=== PATIENT | male | born 1965 | race African-American/Black ===

== ENCOUNTER 2018-05-22 20:14 | Emergency (ER) | payer OTHER ==
[~2018-05-22] VITALS: Ht 172.7 cm; Wt 60.0 kg
[2018-05-22 20:18] VITALS: Ht 172.7 cm; Wt 60.0 kg
[2018-05-22] MEDS ORDERED: PLAVIX75 MG PO (20:20)
[2018-05-22] MEDS ORDERED: BAYER ASPIRIN325 MG PO (20:20)
[2018-05-22] MEDS ORDERED: ALBUTEROL SULF8.5 GM INH (20:20)
[2018-05-22] MEDS ORDERED: PROTONIX40 MG PO (20:21)
[2018-05-22] MEDS ORDERED: NORVASC5 MG PO (20:21)
[2018-05-22] MEDS ORDERED: KLOR-CON 1010 MEQ PO (20:21)
[2018-05-22 21:05] LABS: APPEARANCE CLEAR (CLEAR); BILIRUBIN NEGATIVE (NEGATIVE); COLOR YELLOW (YELLOW); GLUCOSE NEGATIVE (NEGATIVE); KETONE NEGATIVE (NEGATIVE); NITRITE NEGATIVE (NEGATIVE); PROTEIN NEGATIVE (NEGATIVE); SPECIFIC GRAVITY 1.015 (1.005-1.020); UROBILINOGEN NORMAL (NORMAL)
[2018-05-22 21:10] LABS: BASOPHILS 0.4 % (0-2); EOSINOPHILS 0.6 % (0-7); HEMATOCRIT 36.2 % (42.0-54.0); HEMOGLOBIN 12.3 g/dL (13.5-17.5); IMMATURE GRANULOCYTES 0.2 % (0-5); LYMPHOCYTES 19.7 % (15-50); MCH 31.2 pg (26.0-34.0); MCV 91.9 fL (80.0-100.0); MEAN PLATELET VOLUME 9.9 fL (7.4-10.4); MONOCYTES 10.3 % (2-11); NEUTROPHILS 68.8 % (40-80); PLATELET COUNT 194 10x3/uL (130-400); RBC 3.94 10x6/uL (4.20-6.10); RDW 15.9 % (11.5-14.5); WBC 8.3 10x3/uL (4.8-10.8)
[2018-05-22 21:21] LABS: UDS - AMPHET NEGATIVE QUAL (NEGATIVE); UDS - BARB NEGATIVE QUAL (NEGATIVE); UDS - BENZO POSITIVE QUAL (NEGATIVE); UDS - COCAINE NEGATIVE QUAL (NEGATIVE); UDS - OPIATE POSITIVE QUAL (NEGATIVE); UDS - PCP NEGATIVE QUAL (NEGATIVE); UDS - THC NEGATIVE QUAL (NEGATIVE)
[2018-05-22 21:41] LABS: ALBUMIN 4.1 g/dL (3.4-5.0); ALKALINE PHOSPHATASE 57 U/L (46-116); ALT (SGPT) 52 U/L (10-68); BILIRUBIN - TOTAL 0.58 mg/dL (0.2-1.3); CALC OSMOLALITY 277 mosm/kg (275-300); CARBON DIOXIDE 24.3 mmol/L (21.0-32.0); CHLORIDE - SERUM 104 mmol/L (98-107); CREATININE - SERUM 0.6 mg/dL (0.6-1.3); GLUCOSE 96 mg/dL (74-106); POTASSIUM - SERUM 3.9 mmol/L (3.5-5.1); PROTEIN - SERUM 7.3 g/dL (6.4-8.2); SODIUM 139 mmol/L (136-145); UREA NITROGEN 12 mg/dL (7-18); eGFR NON AFRICAN AMERICAN > 90 mL/min (90-120)
[2018-05-22 21:50] LABS: AMYLASE - SERUM 81 U/L (25-115); CKMB 1.7 U/L (0.0-3.6); CREATINE KINASE 117 UL (21-232); LIPASE 133 U/L (73-393); MAGNESIUM - SERUM 1.4 mg/dL (1.8-2.4); TROPONIN-I < 0.017 ng/mL (0.000-0.060)
[2018-05-23 00:08] LABS: CKMB 1.4 U/L (0.0-3.6); CREATINE KINASE 104 UL (21-232); TROPONIN-I < 0.017 ng/mL (0.000-0.060)
[2018-05-23] MEDS ORDERED: PROTONIX40 MG PO (00:41)
[2018-05-23 01:08] VITALS: BP 149/80
== END 2018-05-23 01:10 | disposition home or self-care (01) ==
LOC: D.ER 20:14
PROVIDERS: Family Medicine
DX: K29.70 Gastritis, unspecified, without bleeding (principal); R11.2 Nausea with vomiting, unspecified

== ENCOUNTER 2018-08-11 16:39 | Emergency (ER) | payer MEDICARE, MEDICAID ==
[~2018-08-11] VITALS: Ht 172.7 cm; Wt 54.5 kg
[~2018-08-11 16:39] MED LIST: ALBUTEROL SULF8.5 GM INH; BAYER ASPIRIN325 MG PO; KLOR-CON 1010 MEQ PO; NORVASC5 MG PO; PLAVIX75 MG PO; PROTONIX40 MG PO
[2018-08-11 16:42] VITALS: Ht 172.7 cm; Wt 54.5 kg
[2018-08-11 17:30] LABS: BASOPHILS 0.4 % (0-2); EOSINOPHILS 0.5 % (0-7); HEMATOCRIT 37.2 % (42.0-54.0); LYMPHOCYTES 25.1 % (15-50); MCH 31.8 pg (26.0-34.0); MCHC 34.9 g/dL (31.0-37.0); MEAN PLATELET VOLUME 9.9 fL (7.4-10.4); MONOCYTES 13.4 % (2-11); NEUTROPHILS 60.6 % (40-80); PLATELET COUNT 210 10x3/uL (130-400); RBC 4.09 10x6/uL (4.20-6.10); RDW 14.2 % (11.5-14.5); WBC 5.6 10x3/uL (4.8-10.8)
[2018-08-11 17:31] LABS: ALKALINE PHOSPHATASE 58 U/L (46-116); ALT (SGPT) 19 U/L (10-68); AMYLASE - SERUM 61 U/L (25-115); BILIRUBIN - TOTAL 0.59 mg/dL (0.2-1.3); CALC OSMOLALITY 275 mosm/kg (275-300); CALCIUM 8.7 mg/dL (8.5-10.1); CARBON DIOXIDE 26.2 mmol/L (21.0-32.0); CHLORIDE - SERUM 100 mmol/L (98-107); CREATININE - SERUM 0.6 mg/dL (0.6-1.3); GLUCOSE 92 mg/dL (74-106); LIPASE 70 U/L (73-393); POTASSIUM - SERUM 3.1 mmol/L (3.5-5.1); PROTEIN - SERUM 7.1 g/dL (6.4-8.2); SODIUM 139 mmol/L (136-145); UREA NITROGEN 8 mg/dL (7-18); eGFR NON AFRICAN AMERICAN > 90 mL/min (90-120)
[2018-08-11 18:25] LABS: APPEARANCE CLEAR (CLEAR); BILIRUBIN NEGATIVE (NEGATIVE); COLOR YELLOW (YELLOW); GLUCOSE NEGATIVE (NEGATIVE); KETONE NEGATIVE (NEGATIVE); NITRITE NEGATIVE (NEGATIVE); PROTEIN TRACE mg/dL (NEGATIVE); SPECIFIC GRAVITY 1.015 (1.005-1.020); UROBILINOGEN NORMAL (NORMAL)
[2018-08-11] MEDS ORDERED: ULTRAM50 MG PO (19:29)
[2018-08-11] MEDS ORDERED: LEVOFLOXACIN500 MG PO (19:29)
[2018-08-11 20:01] VITALS: BP 141/94
== END 2018-08-11 20:01 | disposition home or self-care (01) ==
LOC: D.ER 16:39
PROVIDERS: Emergency Medicine
DX: J18.9 Pneumonia, unspecified organism (principal)

== ENCOUNTER 2020-09-03 21:26 | Emergency (ER) | payer MEDICARE, MEDICAID ==
[~2020-09-03] VITALS: Ht 172.7 cm; Wt 79.5 kg
[~2020-09-03 21:26] MED LIST changes: +LEVOFLOXACIN500 MG PO; +ULTRAM50 MG PO
[2020-09-03 21:42] VITALS: Ht 172.7 cm; Wt 79.5 kg
[2020-09-03 22:04] LABS: CALC OSMOLALITY 275 mosm/kg (275-300); CARBON DIOXIDE 29.1 mmol/L (21.0-32.0); CHLORIDE - SERUM 102 mmol/L (98-107); CREATININE - SERUM 0.6 mg/dL (0.6-1.3); GLUCOSE 89 mg/dL (74-106); POTASSIUM - SERUM 3.6 mmol/L (3.5-5.1); SODIUM 139 mmol/L (136-145); UREA NITROGEN 9 mg/dL (7-18); eGFR NON AFRICAN AMERICAN > 90 mL/min (90-120)
[2020-09-03 22:07] LABS: BASOPHILS 1.1 % (0-2); HEMATOCRIT 39.4 % (42.0-54.0); HEMOGLOBIN 13.2 g/dL (13.5-17.5); LYMPHOCYTES 29.7 % (15-50); MCH 30.4 pg (26.0-34.0); MCHC 33.5 g/dL (31.0-37.0); MCV 90.9 fL (80.0-100.0); MEAN PLATELET VOLUME 7.2 fL (7.4-10.4); MONOCYTES 6.3 % (2-11); NEUTROPHILS 61.9 % (40-80); PLATELET COUNT 227 10x3/uL (130-400); RBC 4.34 10x6/uL (4.20-6.10); RDW 15.1 % (11.5-14.5); WBC 5.6 10x3/uL (4.8-10.8)
[2020-09-03 22:17] LABS: ALKALINE PHOSPHATASE 65 U/L (30-120); ALT (SGPT) 15 U/L (10-68); BILIRUBIN - TOTAL 0.52 mg/dL (0.2-1.3); LIPASE 71 U/L (73-393); MAGNESIUM - SERUM 1.6 mg/dL (1.8-2.4); PRO BNP 57 pg/mL (0-125); PROTEIN - SERUM 7.8 g/dL (6.4-8.2); TROPONIN-I < 0.017 ng/mL (0.000-0.060)
[2020-09-03] MEDS ORDERED: ALBUTEROL SULF8.5 GM INH (22:54)
[2020-09-03] MEDS ORDERED: TRELEGY ELLIPT1 EACH INH (22:55)
[2020-09-03 23:28] VITALS: BP 105/67
== END 2020-09-03 23:29 | disposition home or self-care (01) ==
LOC: D.ER 21:26
PROVIDERS: Family Medicine
DX: I25.10 Atherosclerotic heart disease of native coronary artery without angina pectoris (principal); J44.9 Chronic obstructive pulmonary disease, unspecified; R07.9 Chest pain, unspecified; I10 Essential (primary) hypertension; R06.02 Shortness of breath